=== PATIENT | male | born 1960 | race African-American/Black ===

== ENCOUNTER 2018-09-07 16:49 | Inpatient (IN) | payer OTHER ==
[2018-09-07 17:54] VITALS: BMI 23.2
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
[2018-09-08] MEDS ORDERED: MAGNESIUM CITRATE 300 ML BOTTLE PO PRN (00:25)
[2018-09-08] MEDS ORDERED: LOPERAMIDE HCL 2 MG CAPSULE PO PRN (00:25)
[2018-09-08] MEDS ORDERED: hydrOXYzine PAMOATE 50 MG CAPSULE (FP) PO PRN (00:25)
[2018-09-08] MEDS ORDERED: MAGNESIUM HYDROX 2400MG/30ML ORAL SUSPENSION 30 ML CUP PO PRN (00:25)
[2018-09-08] MEDS ORDERED: MENTHOL/PHENOL 1 EACH UD MM PRN (00:25)
[2018-09-08] MEDS ORDERED: IBUPROFEN 400 MG TABLET (FP) PO PRN (00:25)
[2018-09-08] MEDS ORDERED: NICOTINE POLACRILEX 2 MG GUM BUC PRN (00:25)
[2018-09-08] MEDS ORDERED: guaiFENesin 200 MG/10 ML 10 ML UNIT-DOSE CUPS PO PRN (00:25)
[2018-09-08] MEDS ORDERED: P-EPHED 60MG/TRIPROLIDI 2.5MG TABLET PO PRN (00:25)
[2018-09-08 01:06] LABS: EPI CELLS 1.8 /HPF (0-5/HPF); HYALINE CASTS 0 /lpf (0-8); URINE APPEARANCE CLEAR; URINE BILIRUBIN NEGATIVE (NEGATIVE); URINE COLOR YELLOW; URINE GLUCOSE (UA) NEGATIVE (NEGATIVE); URINE KETONE NEGATIVE (NEGATIVE); URINE LEUK ESTERASE TRACE (NEGATIVE); URINE NITRITE NEGATIVE (NEGATIVE); URINE PROTEIN NEGATIVE (NEGATIVE); URINE RBC 1 /hpf (0-4); URINE WBC 5 /hpf (0-5)
[2018-09-08] MEDS: MAG HYDROX/AL HYDROX/SIMETH 30 ML UNIT-DOSE CUP PO PRN (05:59)
[2018-09-08 10:03] LABS: HEMATOCRIT 42.1 % (35.4-49); MCH 30.5 pg (25.7-33.7); MCHC 33.2 g/dl (32.0-35.9); MEAN PLT VOLUME 9.7 fl (7.5-11.1); PLATELET COUNT 291 K/MM3 (134-434); RBC 4.58 M/mm3 (4.00-5.60); RDW 12.7 % (11.9-15.9); WHITE BLOOD COUNT 6.4 K/mm3 (4.0-10.0)
[2018-09-08 10:22] LABS: BILIRUBIN,TOTAL 0.4 mg/dL (0.2-1); CALCIUM 9.2 mg/dL (8.5-10.1); CREATININE 1.2 mg/dL (0.55-1.3); TOT PROT 6.5 g/dl (6.4-8.2)
[2018-09-08] MEDS: PRENATAL VITAMINS W/ FOLIC ACID TABLET (FP) PO SCH (10:30)
[2018-09-08] MEDS: PANTOPRAZOLE 20 MG TABLET (FP) PO SCH (10:30)
[2018-09-08] MEDS: THIAMINE HCL 100 MG TABLET (FP) PO SCH (22:06)
[2018-09-08] MEDS: ALBUTEROL SO4 2.5/IPRATROPIUM 0.5 INH SOL 3 ML VIAL.NEB. NEB PRN (22:22)
[2018-09-09] MEDS: MAG HYDROX/AL HYDROX/SIMETH 30 ML UNIT-DOSE CUP PO PRN ×3 (05:15→19:42)
--- NOTE | 2018-09-09 08:38 | EKG ---
Test Reason : Blood Pressure : / mmHG Vent. Rate : 063 BPM Atrial Rate : 065 BPM P-R Int : 134 ms QRS Dur : 084 ms QT Int : 424 ms P-R-T Axes : 063 078 066 degrees QTc Int : 433 ms NORMAL SINUS RHYTHM WITH SINUS ARRHYTHMIA NORMAL ECG NO PREVIOUS ECGS AVAILABLE Confirmed by TANK IRBY, MELIA ([id number]) on 09/09/2018 8:38:13 AM Referred By: Dayanna Freitas Confirmed By:MELIA FU MD
[2018-09-09] MEDS: PANTOPRAZOLE 20 MG TABLET (FP) PO SCH (10:34)
[2018-09-09] MEDS: PRENATAL VITAMINS W/ FOLIC ACID TABLET (FP) PO SCH (10:34)
[2018-09-09] MEDS: THIAMINE HCL 100 MG TABLET (FP) PO SCH (21:17)
[2018-09-10] MEDS: MAG HYDROX/AL HYDROX/SIMETH 30 ML UNIT-DOSE CUP PO PRN ×3 (01:30→21:51)
[2018-09-10] MEDS: PRENATAL VITAMINS W/ FOLIC ACID TABLET (FP) PO SCH (09:59)
[2018-09-10] MEDS: PANTOPRAZOLE 20 MG TABLET (FP) PO SCH (09:59)
[2018-09-10 11:01] LABS: EPI CELLS 1.7 /HPF (0-5/HPF); HYALINE CASTS 46 /lpf (0-8); PH,URINE 7.5 (5.0-8.0); URINE APPEARANCE CLEAR; URINE BACTERIA 18.6 /hpf (NEGATIVE); URINE BILIRUBIN NEGATIVE (NEGATIVE); URINE COLOR YELLOW; URINE GLUCOSE (UA) NEGATIVE (NEGATIVE); URINE KETONE NEGATIVE (NEGATIVE); URINE LEUK ESTERASE 3+ (NEGATIVE); URINE NITRITE NEGATIVE (NEGATIVE); URINE PROTEIN NEGATIVE (NEGATIVE); URINE RBC 1 /hpf (0-4); URINE UROBILINOGEN 0.2 mg/dL (0.2-1.0); URINE WBC 75 /hpf (0-5)
[2018-09-10] MEDS: THIAMINE HCL 100 MG TABLET (FP) PO SCH (21:50)
[2018-09-11] MEDS: PRENATAL VITAMINS W/ FOLIC ACID TABLET (FP) PO SCH (10:22)
[2018-09-11] MEDS: PANTOPRAZOLE 20 MG TABLET (FP) PO SCH (10:22)
--- NOTE | 2018-09-11 15:03 | PN ---
[facility] Progress Note Note: Patient with GERD. Protonix increased to 40mg BID. Will continue to monitor.
[2018-09-11] MEDS: MAG HYDROX/AL HYDROX/SIMETH 30 ML UNIT-DOSE CUP PO PRN (21:57)
[2018-09-11] MEDS: THIAMINE HCL 100 MG TABLET (FP) PO SCH (21:57)
[2018-09-11] MEDS: PANTOPRAZOLE 40 MG TABLET (FP) PO SCH (21:59)
[2018-09-12] MEDS: PRENATAL VITAMINS W/ FOLIC ACID TABLET (FP) PO SCH (10:22)
[2018-09-12] MEDS: PANTOPRAZOLE 40 MG TABLET (FP) PO SCH ×2 (10:22→21:02)
[2018-09-12] MEDS: THIAMINE HCL 100 MG TABLET (FP) PO SCH (21:02)
[2018-09-12] MEDS: MAG HYDROX/AL HYDROX/SIMETH 30 ML UNIT-DOSE CUP PO PRN (21:03)
[2018-09-12] MEDS: MELATONIN 5 MG TABLETS PO PRN (21:03)
[2018-09-13] MEDS: PRENATAL VITAMINS W/ FOLIC ACID TABLET (FP) PO SCH (10:21)
[2018-09-13] MEDS: PANTOPRAZOLE 40 MG TABLET (FP) PO SCH ×2 (10:21→22:01)
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
[2018-09-13] MEDS: BACITRACIN 15 GM TUBE TOPICAL OINTMENT TP SCH (16:10)
[2018-09-13] MEDS: IBUPROFEN 600 MG TABLET (FP) PO PRN (17:00)
[2018-09-13] MEDS: THIAMINE HCL 100 MG TABLET (FP) PO SCH (22:01)
[2018-09-13] MEDS: MELATONIN 5 MG TABLETS PO PRN (22:01)
[2018-09-13] MEDS: LIDOCAINE PATCH REMOVAL MC SCH (22:02)
[2018-09-13] MEDS: METHYL SALICYLATE/MENTHOL OINT 30 GM TUBE TP SCH (22:27)
[2018-09-14] MEDS: MAG HYDROX/AL HYDROX/SIMETH 30 ML UNIT-DOSE CUP PO PRN (02:52)
[2018-09-14] MEDS: PRENATAL VITAMINS W/ FOLIC ACID TABLET (FP) PO SCH (09:31)
[2018-09-14] MEDS: LIDOCAINE 5% TOPICAL PATCH TP SCH (09:31)
[2018-09-14] MEDS: PANTOPRAZOLE 40 MG TABLET (FP) PO SCH ×2 (09:31→21:30)
[2018-09-14] MEDS: IBUPROFEN 600 MG TABLET (FP) PO PRN ×2 (09:33→21:31)
[2018-09-14] MEDS: BACITRACIN 15 GM TUBE TOPICAL OINTMENT TP SCH (10:24)
[2018-09-14] MEDS: METHYL SALICYLATE/MENTHOL OINT 30 GM TUBE TP SCH (10:24)
[2018-09-14] MEDS: ALBUTEROL SO4 2.5/IPRATROPIUM 0.5 INH SOL 3 ML VIAL.NEB. NEB PRN (11:23)
[2018-09-14] MEDS: LIDOCAINE PATCH REMOVAL MC SCH (21:30)
[2018-09-14] MEDS: THIAMINE HCL 100 MG TABLET (FP) PO SCH (21:30)
[2018-09-15] MEDS: ALBUTEROL SO4 2.5/IPRATROPIUM 0.5 INH SOL 3 ML VIAL.NEB. NEB PRN ×2 (06:36→23:22)
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
[2018-09-15] MEDS: BACITRACIN 15 GM TUBE TOPICAL OINTMENT TP SCH (09:53)
[2018-09-15] MEDS: PRENATAL VITAMINS W/ FOLIC ACID TABLET (FP) PO SCH (09:53)
[2018-09-15] MEDS: PANTOPRAZOLE 40 MG TABLET (FP) PO SCH ×2 (09:53→21:08)
[2018-09-15] MEDS: LIDOCAINE 5% TOPICAL PATCH TP SCH (09:53)
[2018-09-15] MEDS: METHYL SALICYLATE/MENTHOL OINT 30 GM TUBE TP SCH (09:54)
[2018-09-15] MEDS: THIAMINE HCL 100 MG TABLET (FP) PO SCH (21:08)
[2018-09-15] MEDS: SUVOREXANT 10 MG TABLET PO PRN (21:08)
[2018-09-15] MEDS: IBUPROFEN 600 MG TABLET (FP) PO PRN (21:08)
[2018-09-15] MEDS: LIDOCAINE PATCH REMOVAL MC SCH (21:09)
[2018-09-16] MEDS ORDERED: PT OWN MED DRAWER 7, Y5N ONE ×2 (08:46→10:13)
[2018-09-16] MEDS: LIDOCAINE 5% TOPICAL PATCH TP SCH (09:44)
[2018-09-16] MEDS: METHYL SALICYLATE/MENTHOL OINT 30 GM TUBE TP SCH (09:45)
[2018-09-16] MEDS: BACITRACIN 15 GM TUBE TOPICAL OINTMENT TP SCH (09:45)
[2018-09-16] MEDS: PRENATAL VITAMINS W/ FOLIC ACID TABLET (FP) PO SCH (09:45)
[2018-09-16] MEDS: PANTOPRAZOLE 40 MG TABLET (FP) PO SCH ×2 (09:45→21:04)
[2018-09-16] MEDS: ALBUTEROL SO4 2.5/IPRATROPIUM 0.5 INH SOL 3 ML VIAL.NEB. NEB PRN (14:44)
[2018-09-16] MEDS: SUVOREXANT 10 MG TABLET PO PRN (21:04)
[2018-09-16] MEDS: IBUPROFEN 600 MG TABLET (FP) PO PRN (21:04)
[2018-09-16] MEDS: LIDOCAINE PATCH REMOVAL MC SCH (21:05)
[2018-09-16] MEDS: BUDESONIDE/FORMETEROL FUMARATE 160/4.5 mcg INHALER IH SCH (21:05)
[2018-09-16] MEDS: MELATONIN 5 MG TABLETS PO PRN (21:05)
[2018-09-16] MEDS: THIAMINE HCL 100 MG TABLET (FP) PO SCH (21:49)
[2018-09-17] MEDS ORDERED: PT OWN MED DRAWER 7, Y5N ONE (08:43)
[2018-09-17] MEDS: LIDOCAINE 5% TOPICAL PATCH TP SCH (09:31)
[2018-09-17] MEDS: BUDESONIDE/FORMETEROL FUMARATE 160/4.5 mcg INHALER IH SCH ×2 (09:32→21:47)
[2018-09-17] MEDS: PRENATAL VITAMINS W/ FOLIC ACID TABLET (FP) PO SCH (09:32)
[2018-09-17] MEDS: METHYL SALICYLATE/MENTHOL OINT 30 GM TUBE TP SCH (09:32)
[2018-09-17] MEDS: PANTOPRAZOLE 40 MG TABLET (FP) PO SCH ×2 (09:32→21:47)
[2018-09-17] MEDS: BACITRACIN 15 GM TUBE TOPICAL OINTMENT TP SCH (09:48)
[2018-09-17] MEDS: ACETAMINOPHEN 325 MG TABLET (FP) PO PRN (20:09)
[2018-09-17] MEDS: THIAMINE HCL 100 MG TABLET (FP) PO SCH (21:47)
[2018-09-17] MEDS: LIDOCAINE PATCH REMOVAL MC SCH (21:48)
[2018-09-17] MEDS: IBUPROFEN 600 MG TABLET (FP) PO PRN (21:49)
[2018-09-17] MEDS: SUVOREXANT 10 MG TABLET PO PRN (21:49)
[2018-09-18] MEDS: METHYL SALICYLATE/MENTHOL OINT 30 GM TUBE TP SCH (09:42)
[2018-09-18] MEDS: PRENATAL VITAMINS W/ FOLIC ACID TABLET (FP) PO SCH (09:42)
[2018-09-18] MEDS: LIDOCAINE 5% TOPICAL PATCH TP SCH (09:42)
[2018-09-18] MEDS: PANTOPRAZOLE 40 MG TABLET (FP) PO SCH ×2 (09:42→21:52)
[2018-09-18] MEDS: BUDESONIDE/FORMETEROL FUMARATE 160/4.5 mcg INHALER IH SCH ×2 (09:42→21:53)
[2018-09-18] MEDS: BACITRACIN 15 GM TUBE TOPICAL OINTMENT TP SCH (09:42)
[2018-09-18] MEDS: ACETAMINOPHEN 325 MG TABLET (FP) PO PRN (09:43)
[2018-09-18] MEDS: THIAMINE HCL 100 MG TABLET (FP) PO SCH (21:52)
[2018-09-18] MEDS: MELATONIN 5 MG TABLETS PO PRN (21:52)
[2018-09-18] MEDS: LIDOCAINE PATCH REMOVAL MC SCH (21:52)
[2018-09-18] MEDS: IBUPROFEN 600 MG TABLET (FP) PO PRN (21:54)
[2018-09-18] MEDS: SUVOREXANT 10 MG TABLET PO PRN (21:56)
[2018-09-18] MEDS ORDERED: PT OWN MED DRAWER 7, Y5N ONE (21:57)
[2018-09-19] MEDS: PRENATAL VITAMINS W/ FOLIC ACID TABLET (FP) PO SCH (10:16)
[2018-09-19] MEDS: LIDOCAINE 5% TOPICAL PATCH TP SCH (10:16)
[2018-09-19] MEDS: PANTOPRAZOLE 40 MG TABLET (FP) PO SCH ×2 (10:16→21:06)
[2018-09-19] MEDS: BUDESONIDE/FORMETEROL FUMARATE 160/4.5 mcg INHALER IH SCH ×2 (10:16→21:05)
[2018-09-19] MEDS: ACETAMINOPHEN 325 MG TABLET (FP) PO PRN (10:17)
[2018-09-19] MEDS: METHYL SALICYLATE/MENTHOL OINT 30 GM TUBE TP SCH (10:19)
[2018-09-19] MEDS: BACITRACIN 15 GM TUBE TOPICAL OINTMENT TP SCH (10:19)
[2018-09-19] MEDS: MELATONIN 5 MG TABLETS PO PRN (21:06)
[2018-09-19] MEDS: SUVOREXANT 10 MG TABLET PO PRN (21:06)
[2018-09-19] MEDS: THIAMINE HCL 100 MG TABLET (FP) PO SCH (21:06)
[2018-09-19] MEDS: IBUPROFEN 600 MG TABLET (FP) PO PRN (21:07)
[2018-09-19] MEDS: LIDOCAINE PATCH REMOVAL MC SCH (21:09)
[2018-09-20] MEDS: PRENATAL VITAMINS W/ FOLIC ACID TABLET (FP) PO SCH (09:47)
[2018-09-20] MEDS: PANTOPRAZOLE 40 MG TABLET (FP) PO SCH ×2 (09:47→21:46)
[2018-09-20] MEDS: BUDESONIDE/FORMETEROL FUMARATE 160/4.5 mcg INHALER IH SCH ×2 (09:47→21:45)
[2018-09-20] MEDS: IBUPROFEN 600 MG TABLET (FP) PO PRN (09:48)
[2018-09-20] MEDS: METHYL SALICYLATE/MENTHOL OINT 30 GM TUBE TP SCH (09:48)
[2018-09-20] MEDS: BACITRACIN 15 GM TUBE TOPICAL OINTMENT TP SCH (09:48)
[2018-09-20] MEDS: LIDOCAINE 5% TOPICAL PATCH TP SCH (09:48)
--- NOTE | 2018-09-20 10:15 | PN ---
[facility] Progress Note Note: Patient requesting urine toxicology for admission to a [facility]. Ordered.
[2018-09-20] MEDS: MELATONIN 5 MG TABLETS PO PRN (21:46)
[2018-09-20] MEDS: ACETAMINOPHEN 325 MG TABLET (FP) PO PRN (21:46)
[2018-09-20] MEDS: THIAMINE HCL 100 MG TABLET (FP) PO SCH (21:46)
[2018-09-20] MEDS: SUVOREXANT 10 MG TABLET PO PRN (21:46)
[2018-09-20] MEDS: LIDOCAINE PATCH REMOVAL MC SCH (21:48)
[2018-09-21] MEDS: BUDESONIDE/FORMETEROL FUMARATE 160/4.5 mcg INHALER IH SCH ×2 (09:36→21:13)
[2018-09-21] MEDS: PRENATAL VITAMINS W/ FOLIC ACID TABLET (FP) PO SCH (09:37)
[2018-09-21] MEDS: ACETAMINOPHEN 325 MG TABLET (FP) PO PRN (09:37)
[2018-09-21] MEDS: LIDOCAINE 5% TOPICAL PATCH TP SCH (09:37)
[2018-09-21] MEDS: PANTOPRAZOLE 40 MG TABLET (FP) PO SCH ×2 (09:37→21:14)
[2018-09-21] MEDS: BACITRACIN 15 GM TUBE TOPICAL OINTMENT TP SCH (09:39)
[2018-09-21] MEDS: METHYL SALICYLATE/MENTHOL OINT 30 GM TUBE TP SCH (09:39)
[2018-09-21] MEDS: IBUPROFEN 600 MG TABLET (FP) PO PRN ×2 (13:45→21:17)
[2018-09-21] MEDS: THIAMINE HCL 100 MG TABLET (FP) PO SCH (21:14)
[2018-09-21] MEDS: LIDOCAINE PATCH REMOVAL MC SCH (21:14)
[2018-09-21] MEDS: MELATONIN 5 MG TABLETS PO PRN (21:17)
[2018-09-21] MEDS: SUVOREXANT 10 MG TABLET PO PRN (21:19)
[2018-09-22] MEDS: LIDOCAINE 5% TOPICAL PATCH TP SCH (09:36)
[2018-09-22] MEDS: PANTOPRAZOLE 40 MG TABLET (FP) PO SCH ×2 (09:36→22:02)
[2018-09-22] MEDS: PRENATAL VITAMINS W/ FOLIC ACID TABLET (FP) PO SCH (09:36)
[2018-09-22] MEDS: BUDESONIDE/FORMETEROL FUMARATE 160/4.5 mcg INHALER IH SCH ×2 (09:37→22:02)
[2018-09-22] MEDS: IBUPROFEN 600 MG TABLET (FP) PO PRN ×2 (09:37→22:04)
[2018-09-22] MEDS: BACITRACIN 15 GM TUBE TOPICAL OINTMENT TP SCH (09:38)
[2018-09-22] MEDS: METHYL SALICYLATE/MENTHOL OINT 30 GM TUBE TP SCH (09:38)
[2018-09-22] MEDS: THIAMINE HCL 100 MG TABLET (FP) PO SCH (22:02)
[2018-09-22] MEDS: SUVOREXANT 10 MG TABLET PO PRN (22:04)
[2018-09-22] MEDS: MELATONIN 5 MG TABLETS PO PRN (22:04)
[2018-09-22] MEDS: LIDOCAINE PATCH REMOVAL MC SCH (22:04)
[2018-09-23] MEDS: PANTOPRAZOLE 40 MG TABLET (FP) PO SCH ×2 (10:25→21:53)
[2018-09-23] MEDS: BACITRACIN 15 GM TUBE TOPICAL OINTMENT TP SCH (10:25)
[2018-09-23] MEDS: IBUPROFEN 600 MG TABLET (FP) PO PRN (10:25)
[2018-09-23] MEDS: PRENATAL VITAMINS W/ FOLIC ACID TABLET (FP) PO SCH (10:25)
[2018-09-23] MEDS: METHYL SALICYLATE/MENTHOL OINT 30 GM TUBE TP SCH (10:25)
[2018-09-23] MEDS: LIDOCAINE 5% TOPICAL PATCH TP SCH (10:25)
[2018-09-23] MEDS: BUDESONIDE/FORMETEROL FUMARATE 160/4.5 mcg INHALER IH SCH ×2 (10:25→21:52)
[2018-09-23] MEDS: MELATONIN 5 MG TABLETS PO PRN (21:53)
[2018-09-23] MEDS: SUVOREXANT 10 MG TABLET PO PRN (21:53)
[2018-09-23] MEDS: THIAMINE HCL 100 MG TABLET (FP) PO SCH (21:53)
[2018-09-23] MEDS: ACETAMINOPHEN 325 MG TABLET (FP) PO PRN (21:55)
[2018-09-23] MEDS: LIDOCAINE PATCH REMOVAL MC SCH (21:57)
[2018-09-24] MEDS: IBUPROFEN 600 MG TABLET (FP) PO PRN ×2 (01:52→21:17)
[2018-09-24] MEDS: PRENATAL VITAMINS W/ FOLIC ACID TABLET (FP) PO SCH (10:11)
[2018-09-24] MEDS: LIDOCAINE 5% TOPICAL PATCH TP SCH (10:11)
[2018-09-24] MEDS: METHYL SALICYLATE/MENTHOL OINT 30 GM TUBE TP SCH (10:11)
[2018-09-24] MEDS: PANTOPRAZOLE 40 MG TABLET (FP) PO SCH ×2 (10:11→21:16)
[2018-09-24] MEDS: BACITRACIN 15 GM TUBE TOPICAL OINTMENT TP SCH (10:11)
[2018-09-24] MEDS: ACETAMINOPHEN 325 MG TABLET (FP) PO PRN (10:12)
[2018-09-24] MEDS: BUDESONIDE/FORMETEROL FUMARATE 160/4.5 mcg INHALER IH SCH ×2 (10:14→21:16)
[2018-09-24] MEDS: SUVOREXANT 10 MG TABLET PO PRN (21:16)
[2018-09-24] MEDS: MELATONIN 5 MG TABLETS PO PRN (21:16)
[2018-09-24] MEDS: THIAMINE HCL 100 MG TABLET (FP) PO SCH (21:16)
[2018-09-24] MEDS: LIDOCAINE PATCH REMOVAL MC SCH (21:18)
[2018-09-25] MEDS: PRENATAL VITAMINS W/ FOLIC ACID TABLET (FP) PO SCH (09:38)
[2018-09-25] MEDS: BUDESONIDE/FORMETEROL FUMARATE 160/4.5 mcg INHALER IH SCH ×2 (09:38→21:50)
[2018-09-25] MEDS: BACITRACIN 15 GM TUBE TOPICAL OINTMENT TP SCH (09:39)
[2018-09-25] MEDS: LIDOCAINE 5% TOPICAL PATCH TP SCH (09:39)
[2018-09-25] MEDS: METHYL SALICYLATE/MENTHOL OINT 30 GM TUBE TP SCH (09:39)
[2018-09-25] MEDS: PANTOPRAZOLE 40 MG TABLET (FP) PO SCH ×2 (09:39→21:51)
[2018-09-25] MEDS: ACETAMINOPHEN 325 MG TABLET (FP) PO PRN (09:40)
[2018-09-25] MEDS ORDERED: COLLOIDAL OATMEAL 1 BAR EACH TP PRN (09:52)
[2018-09-25] MEDS: LORATADINE 10 MG TABLET PO SCH (14:27)
[2018-09-25] MEDS: MELATONIN 5 MG TABLETS PO PRN (21:51)
[2018-09-25] MEDS: IBUPROFEN 600 MG TABLET (FP) PO PRN (21:51)
[2018-09-25] MEDS: THIAMINE HCL 100 MG TABLET (FP) PO SCH (21:51)
[2018-09-25] MEDS: SUVOREXANT 10 MG TABLET PO PRN (21:51)
[2018-09-25] MEDS: LIDOCAINE PATCH REMOVAL MC SCH (22:00)
[2018-09-26] MEDS: PRENATAL VITAMINS W/ FOLIC ACID TABLET (FP) PO SCH (09:43)
[2018-09-26] MEDS: PANTOPRAZOLE 40 MG TABLET (FP) PO SCH ×2 (09:43→21:01)
[2018-09-26] MEDS: LORATADINE 10 MG TABLET PO SCH (09:43)
[2018-09-26] MEDS: BUDESONIDE/FORMETEROL FUMARATE 160/4.5 mcg INHALER IH SCH ×2 (09:43→21:01)
[2018-09-26] MEDS: LIDOCAINE 5% TOPICAL PATCH TP SCH (09:43)
[2018-09-26] MEDS: ACETAMINOPHEN 325 MG TABLET (FP) PO PRN (09:44)
[2018-09-26] MEDS: METHYL SALICYLATE/MENTHOL OINT 30 GM TUBE TP SCH (10:52)
[2018-09-26] MEDS: BACITRACIN 15 GM TUBE TOPICAL OINTMENT TP SCH (10:52)
[2018-09-26] MEDS: LIDOCAINE PATCH REMOVAL MC SCH (21:01)
[2018-09-26] MEDS: THIAMINE HCL 100 MG TABLET (FP) PO SCH (21:01)
[2018-09-26] MEDS: MELATONIN 5 MG TABLETS PO PRN (21:01)
[2018-09-26] MEDS: IBUPROFEN 600 MG TABLET (FP) PO PRN (21:02)
[2018-09-26] MEDS: SUVOREXANT 10 MG TABLET PO PRN (21:04)
[2018-09-27] MEDS: PANTOPRAZOLE 40 MG TABLET (FP) PO SCH ×2 (09:33→21:56)
[2018-09-27] MEDS: PRENATAL VITAMINS W/ FOLIC ACID TABLET (FP) PO SCH (09:33)
[2018-09-27] MEDS: LIDOCAINE 5% TOPICAL PATCH TP SCH (09:33)
[2018-09-27] MEDS: LORATADINE 10 MG TABLET PO SCH (09:33)
[2018-09-27] MEDS: IBUPROFEN 600 MG TABLET (FP) PO PRN ×2 (09:34→21:58)
[2018-09-27] MEDS: BACITRACIN 15 GM TUBE TOPICAL OINTMENT TP SCH (09:36)
[2018-09-27] MEDS: BUDESONIDE/FORMETEROL FUMARATE 160/4.5 mcg INHALER IH SCH ×2 (09:36→21:56)
[2018-09-27] MEDS: METHYL SALICYLATE/MENTHOL OINT 30 GM TUBE TP SCH (09:36)
[2018-09-27] MEDS: THIAMINE HCL 100 MG TABLET (FP) PO SCH (21:56)
[2018-09-27] MEDS: SUVOREXANT 10 MG TABLET PO PRN (21:57)
[2018-09-27] MEDS: MELATONIN 5 MG TABLETS PO PRN (21:58)
[2018-09-27] MEDS: LIDOCAINE PATCH REMOVAL MC SCH (21:59)
[2018-09-27] MEDS ORDERED: SUVOREXANT 10 MG TABLET PO PRN (22:00)
[2018-09-28] MEDS: LORATADINE 10 MG TABLET PO SCH (09:38)
[2018-09-28] MEDS: PRENATAL VITAMINS W/ FOLIC ACID TABLET (FP) PO SCH (09:38)
[2018-09-28] MEDS: ACETAMINOPHEN 325 MG TABLET (FP) PO PRN ×2 (09:38→21:45)
[2018-09-28] MEDS: PANTOPRAZOLE 40 MG TABLET (FP) PO SCH ×2 (09:38→21:44)
[2018-09-28] MEDS: BUDESONIDE/FORMETEROL FUMARATE 160/4.5 mcg INHALER IH SCH ×2 (09:38→21:44)
[2018-09-28] MEDS: LIDOCAINE 5% TOPICAL PATCH TP SCH (09:39)
[2018-09-28] MEDS: METHYL SALICYLATE/MENTHOL OINT 30 GM TUBE TP SCH (09:40)
[2018-09-28] MEDS: BACITRACIN 15 GM TUBE TOPICAL OINTMENT TP SCH (09:40)
[2018-09-28] MEDS: MELATONIN 5 MG TABLETS PO PRN (21:44)
[2018-09-28] MEDS: SUVOREXANT 10 MG TABLET PO PRN (21:44)
[2018-09-28] MEDS: THIAMINE HCL 100 MG TABLET (FP) PO SCH (21:46)
[2018-09-28] MEDS: LIDOCAINE PATCH REMOVAL MC SCH (21:47)
[2018-09-29] MEDS: PANTOPRAZOLE 40 MG TABLET (FP) PO SCH ×2 (09:29→21:05)
[2018-09-29] MEDS: LORATADINE 10 MG TABLET PO SCH (09:29)
[2018-09-29] MEDS: IBUPROFEN 600 MG TABLET (FP) PO PRN ×3 (09:29→21:04)
[2018-09-29] MEDS: PRENATAL VITAMINS W/ FOLIC ACID TABLET (FP) PO SCH (09:29)
[2018-09-29] MEDS: LIDOCAINE 5% TOPICAL PATCH TP SCH (09:30)
[2018-09-29] MEDS: BUDESONIDE/FORMETEROL FUMARATE 160/4.5 mcg INHALER IH SCH ×2 (09:30→21:04)
[2018-09-29] MEDS: METHYL SALICYLATE/MENTHOL OINT 30 GM TUBE TP SCH (09:31)
[2018-09-29] MEDS: BACITRACIN 15 GM TUBE TOPICAL OINTMENT TP SCH (09:31)
[2018-09-29] MEDS: MELATONIN 5 MG TABLETS PO PRN (21:04)
[2018-09-29] MEDS: SUVOREXANT 10 MG TABLET PO PRN (21:04)
[2018-09-29] MEDS: THIAMINE HCL 100 MG TABLET (FP) PO SCH (21:05)
[2018-09-29] MEDS: LIDOCAINE PATCH REMOVAL MC SCH (21:06)
[2018-09-30] MEDS: PANTOPRAZOLE 40 MG TABLET (FP) PO SCH ×2 (09:12→22:09)
[2018-09-30] MEDS: BUDESONIDE/FORMETEROL FUMARATE 160/4.5 mcg INHALER IH SCH ×2 (09:12→22:09)
[2018-09-30] MEDS: PRENATAL VITAMINS W/ FOLIC ACID TABLET (FP) PO SCH (09:12)
[2018-09-30] MEDS: LORATADINE 10 MG TABLET PO SCH (09:12)
[2018-09-30] MEDS: IBUPROFEN 600 MG TABLET (FP) PO PRN ×2 (09:14→20:08)
[2018-09-30] MEDS: METHYL SALICYLATE/MENTHOL OINT 30 GM TUBE TP SCH (09:15)
[2018-09-30] MEDS: LIDOCAINE 5% TOPICAL PATCH TP SCH (09:15)
[2018-09-30] MEDS: BACITRACIN 15 GM TUBE TOPICAL OINTMENT TP SCH (09:15)
--- NOTE | 2018-09-30 12:57 | PN ---
[facility] Progress Note Note: Psychiatry Attending's note : Called to renew suvorexant. Chart reviewed. Medication is confirmed. No report of adverse effects. Improved sleep. Belsomra 10 mg po hs prn. Ordered. Patient agrees.
[2018-09-30] MEDS ORDERED: PT OWN MED DRAWER 7, Y5N ONE (19:50)
[2018-09-30] MEDS ORDERED: SUVOREXANT 10 MG TABLET PO PRN (22:00)
[2018-09-30] MEDS: THIAMINE HCL 100 MG TABLET (FP) PO SCH (22:09)
[2018-09-30] MEDS: MELATONIN 5 MG TABLETS PO PRN (22:09)
[2018-09-30] MEDS: LIDOCAINE PATCH REMOVAL MC SCH (22:34)
[2018-09-30] MEDS: ACETAMINOPHEN 325 MG TABLET (FP) PO PRN (23:39)
[2018-10-01] MEDS ORDERED: PT OWN MED DRAWER 7, Y5N ONE (09:52)
[2018-10-01] MEDS: BUDESONIDE/FORMETEROL FUMARATE 160/4.5 mcg INHALER IH SCH ×2 (10:48→21:08)
[2018-10-01] MEDS: LORATADINE 10 MG TABLET PO SCH (10:49)
[2018-10-01] MEDS: BACITRACIN 15 GM TUBE TOPICAL OINTMENT TP SCH (10:49)
[2018-10-01] MEDS: METHYL SALICYLATE/MENTHOL OINT 30 GM TUBE TP SCH (10:49)
[2018-10-01] MEDS: PANTOPRAZOLE 40 MG TABLET (FP) PO SCH ×2 (10:49→21:08)
[2018-10-01] MEDS: LIDOCAINE 5% TOPICAL PATCH TP SCH (10:49)
[2018-10-01] MEDS: PRENATAL VITAMINS W/ FOLIC ACID TABLET (FP) PO SCH (10:49)
[2018-10-01] MEDS: IBUPROFEN 600 MG TABLET (FP) PO PRN ×2 (10:50→17:26)
[2018-10-01] MEDS: LIDOCAINE PATCH REMOVAL MC SCH (21:08)
[2018-10-01] MEDS: THIAMINE HCL 100 MG TABLET (FP) PO SCH (21:09)
[2018-10-01] MEDS: SUVOREXANT 10 MG TABLET PO PRN (21:10)
[2018-10-01] MEDS: ACETAMINOPHEN 325 MG TABLET (FP) PO PRN (21:11)
[2018-10-01] MEDS: MELATONIN 5 MG TABLETS PO PRN (21:11)
[2018-10-02] MEDS: LORATADINE 10 MG TABLET PO SCH (09:34)
[2018-10-02] MEDS ORDERED: PT OWN MED DRAWER 7, Y5N ONE (09:34)
[2018-10-02] MEDS: LIDOCAINE 5% TOPICAL PATCH TP SCH (09:34)
[2018-10-02] MEDS: PRENATAL VITAMINS W/ FOLIC ACID TABLET (FP) PO SCH (09:34)
[2018-10-02] MEDS: IBUPROFEN 600 MG TABLET (FP) PO PRN ×2 (09:34→21:59)
[2018-10-02] MEDS: PANTOPRAZOLE 40 MG TABLET (FP) PO SCH ×2 (09:34→21:58)
[2018-10-02] MEDS: BACITRACIN 15 GM TUBE TOPICAL OINTMENT TP SCH (09:36)
[2018-10-02] MEDS: BUDESONIDE/FORMETEROL FUMARATE 160/4.5 mcg INHALER IH SCH ×2 (09:36→21:58)
[2018-10-02] MEDS: METHYL SALICYLATE/MENTHOL OINT 30 GM TUBE TP SCH (09:36)
[2018-10-02] MEDS: THIAMINE HCL 100 MG TABLET (FP) PO SCH (21:58)
[2018-10-02] MEDS: MELATONIN 5 MG TABLETS PO PRN (21:58)
[2018-10-02] MEDS: SUVOREXANT 10 MG TABLET PO PRN (21:59)
[2018-10-02] MEDS: LIDOCAINE PATCH REMOVAL MC SCH (22:01)
--- NOTE | 2018-10-03 06:01 | PN ---
[facility] Progress Note Note: Patient is scheduled for discharge today. Script for 30 days supply of medications(Prozac 20 mg/day, Remeron 15 mg/hs) are electronically transmitted to [facility] at [address] [place] [address]
[2018-10-03 06:50] VITALS: BP 112/71; PULSE 80; TEMP 97.6
--- NOTE | 2018-10-03 08:26 | PN ---
[facility] Progress Note (SOAP) Subjective: Patient to be discharged today Objective: A+O x3, no neurological deficits noted, lungs clear, heart sounds regular, abd soft, non-tender, +BS 10/03/18 08:24 CBC, BMP 09/08/18 07:25 09/08/18 07:25 Vital Signs (72 hours) 10/01/18 10/01/18 10/01/18 00:30 03:30 07:01 Temperature 97.7 F Pulse Rate 75 Respiratory 18 18 18 Rate Blood Pressure 103/78 10/02/18 10/02/18 10/02/18 00:30 03:30 07:02 Temperature 97.5 F L Pulse Rate 78 Respiratory 18 18 18 Rate Blood Pressure 119/75 10/03/18 10/03/18 03:30 06:48 Temperature 97.6 F Pulse Rate 80 Respiratory 18 18 Rate Blood Pressure 112/71 10/03/18 08:29 Assessment: Medically stable for discharge Discharge Dx ETOH dependence Cocaine Dependence Chronic pain Asthma GERD 10/03/18 08:25 Plan: Discharge Plan: Patient will go to the [facility] in [place] for aftercare and for primary care. Prescriptions transmitted to pharmacy.
[2018-10-03] MEDS: IBUPROFEN 600 MG TABLET (FP) PO PRN (08:40)
== END 2018-10-03 09:04 | disposition home or self-care (01) | DRG 772 ==
LOC: YASAS 16:49 → Y3W 23:15
PROVIDERS: ADMIT Neuromusculoskeletal Medicine & OMM; ATTEND Neuromusculoskeletal Medicine & OMM
PROC: HZ42ZZZ Group Counseling for Substance Abuse Treatment, Cognitive-Behavioral (ICD-10-PCS; principal; 2018-09-07)
DX: F10.20 Alcohol dependence, uncomplicated (principal); F14.20 Cocaine dependence, uncomplicated; F17.210 Nicotine dependence, cigarettes, uncomplicated; F31.9 Bipolar disorder, unspecified; F43.10 Post-traumatic stress disorder, unspecified; F19.280 Other psychoactive substance dependence with psychoactive substance-induced anxiety disorder; F19.282 Other psychoactive substance dependence with psychoactive substance-induced sleep disorder; J45.909 Unspecified asthma, uncomplicated; K21.9 Gastro-esophageal reflux disease without esophagitis; E78.5 Hyperlipidemia, unspecified; M19.90 Unspecified osteoarthritis, unspecified site; M54.5 Low back pain; G89.29 Other chronic pain; Z88.0 Allergy status to penicillin; Z86.69 Personal history of other diseases of the nervous system and sense organs
CPT/HCPCS: 36415; 80053; 81003; 85027; 86593; 93005; 93010; 94640

== ENCOUNTER 2019-03-21 08:30 | Inpatient (IN) | payer OTHER ==
[2019-03-21 09:24] VITALS: BMI 25.7
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
[2019-03-21] MEDS ORDERED: MAGNESIUM CITRATE 300 ML BOTTLE PO PRN (10:09)
[2019-03-21] MEDS ORDERED: ACETAMINOPHEN 325 MG TABLET (FP) PO PRN (10:09)
[2019-03-21] MEDS ORDERED: LOPERAMIDE HCL 2 MG CAPSULE PO PRN (10:09)
[2019-03-21] MEDS ORDERED: MAGNESIUM HYDROX 2400MG/30ML ORAL SUSPENSION 30 ML CUP PO PRN (10:09)
[2019-03-21] MEDS ORDERED: MENTHOL/PHENOL 1 EACH UD MM PRN (10:09)
[2019-03-21] MEDS ORDERED: guaiFENesin 200 MG/10 ML 10 ML UNIT-DOSE CUPS PO PRN (10:09)
[2019-03-21] MEDS ORDERED: P-EPHED 60MG/TRIPROLIDI 2.5MG TABLET PO PRN (10:09)
[2019-03-21] MEDS ORDERED: IBUPROFEN 400 MG TABLET (FP) PO PRN (10:09)
[2019-03-21] MEDS ORDERED: ALBUTEROL SO4 8 GM HFA INHALER IH PRN (10:10)
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
[2019-03-21 14:15] LABS: HEMOGLOBIN 13.6 GM/dL (11.7-16.9); MCH 30.5 pg (25.7-33.7); MCHC 33.2 g/dl (32.0-35.9); MEAN CELL VOLUME 92.1 fl (80-96); MEAN PLT VOLUME 9.3 fl (7.5-11.1); PLATELET COUNT 335 K/MM3 (134-434); RBC 4.45 M/mm3 (4.00-5.60); RDW 13.5 % (11.9-15.9); WHITE BLOOD COUNT 6.8 K/mm3 (4.0-10.0)
[2019-03-21 14:18] LABS: ALBUMIN 3.1 g/dl (3.4-5.0); BILIRUBIN,TOTAL 0.2 mg/dL (0.2-1); BLOOD UREA NITROGEN 11.3 mg/dL (7-18); CALCIUM 8.9 mg/dL (8.5-10.1); CREATININE 1.5 mg/dL (0.55-1.3); POTASSIUM 4.8 mmol/L (3.5-5.1); TOT PROT 7.4 g/dl (6.4-8.2)
[2019-03-21] MEDS ORDERED: COLLOIDAL OATMEAL 1 BAR EACH TP PRN (14:54)
[2019-03-21] MEDS: THIAMINE HCL 100 MG TABLET (FP) PO SCH (21:14)
[2019-03-21] MEDS: MELATONIN 5 MG TABLETS PO PRN (21:15)
[2019-03-21] MEDS: BUDESONIDE/FORMETEROL FUMARATE 160/4.5 mcg INHALER IH SCH (21:15)
[2019-03-22] MEDS: NICOTINE 7 MG/24 HOURS TOPICAL PATCH TD SCH (10:04)
[2019-03-22] MEDS: FAMOTIDINE 20 MG TABLET PO SCH (10:04)
[2019-03-22] MEDS: LORATADINE 10 MG TABLET PO SCH (10:04)
[2019-03-22] MEDS: PRENATAL VITAMINS W/ FOLIC ACID TABLET (FP) PO SCH (10:04)
[2019-03-22] MEDS: BUDESONIDE/FORMETEROL FUMARATE 160/4.5 mcg INHALER IH SCH ×2 (10:04→21:49)
[2019-03-22] MEDS: MINERAL OIL/PETROLAT/WATER TOPICAL CREAM 113 GM JAR TP PRN (10:05)
[2019-03-22 14:09] LABS: PH,URINE 6.5 (5.0-8.0); URINE APPEARANCE CLEAR; URINE BILIRUBIN NEGATIVE (NEGATIVE); URINE COLOR YELLOW; URINE GLUCOSE (UA) NEGATIVE (NEGATIVE); URINE KETONE NEGATIVE (NEGATIVE); URINE LEUK ESTERASE NEGATIVE (NEGATIVE); URINE NITRITE NEGATIVE (NEGATIVE); URINE PROTEIN NEGATIVE (NEGATIVE); URINE UROBILINOGEN 0.2 mg/dL (0.2-1.0)
[2019-03-22] MEDS: THIAMINE HCL 100 MG TABLET (FP) PO SCH (21:49)
[2019-03-23] MEDS: FAMOTIDINE 20 MG TABLET PO SCH (10:13)
[2019-03-23] MEDS: LORATADINE 10 MG TABLET PO SCH (10:13)
[2019-03-23] MEDS: PRENATAL VITAMINS W/ FOLIC ACID TABLET (FP) PO SCH (10:13)
[2019-03-23] MEDS: BUDESONIDE/FORMETEROL FUMARATE 160/4.5 mcg INHALER IH SCH ×2 (10:13→21:02)
[2019-03-23] MEDS: NICOTINE 7 MG/24 HOURS TOPICAL PATCH TD SCH (10:14)
[2019-03-23] MEDS: THIAMINE HCL 100 MG TABLET (FP) PO SCH (21:02)
[2019-03-23] MEDS: MELATONIN 5 MG TABLETS PO PRN (21:02)
[2019-03-24] MEDS: FAMOTIDINE 20 MG TABLET PO SCH (10:15)
[2019-03-24] MEDS: PRENATAL VITAMINS W/ FOLIC ACID TABLET (FP) PO SCH (10:15)
[2019-03-24] MEDS: BUDESONIDE/FORMETEROL FUMARATE 160/4.5 mcg INHALER IH SCH ×2 (10:15→21:00)
[2019-03-24] MEDS: LORATADINE 10 MG TABLET PO SCH (10:15)
[2019-03-24] MEDS: NICOTINE 7 MG/24 HOURS TOPICAL PATCH TD SCH (10:15)
[2019-03-24] MEDS ORDERED: PT OWN MED DRAWER 7, Y5N ONE ×2 (19:21→21:02)
[2019-03-24] MEDS: THIAMINE HCL 100 MG TABLET (FP) PO SCH (21:00)
[2019-03-24] MEDS: MINERAL OIL/PETROLAT/WATER TOPICAL CREAM 113 GM JAR TP PRN (21:02)
[2019-03-25] MEDS: BUDESONIDE/FORMETEROL FUMARATE 160/4.5 mcg INHALER IH SCH ×2 (09:44→21:26)
[2019-03-25] MEDS: MINERAL OIL/PETROLAT/WATER TOPICAL CREAM 113 GM JAR TP PRN ×2 (09:44→21:26)
[2019-03-25] MEDS: NICOTINE 7 MG/24 HOURS TOPICAL PATCH TD SCH (09:45)
[2019-03-25] MEDS: PRENATAL VITAMINS W/ FOLIC ACID TABLET (FP) PO SCH (09:45)
[2019-03-25] MEDS: LORATADINE 10 MG TABLET PO SCH (09:45)
[2019-03-25] MEDS: FAMOTIDINE 20 MG TABLET PO SCH (09:45)
[2019-03-25] MEDS: MAG HYDROX/AL HYDROX/SIMETH 30 ML UNIT-DOSE CUP PO PRN (10:00)
[2019-03-25] MEDS: MELATONIN 5 MG TABLETS PO PRN (21:26)
[2019-03-25] MEDS: THIAMINE HCL 100 MG TABLET (FP) PO SCH (21:26)
[2019-03-26] MEDS: MAG HYDROX/AL HYDROX/SIMETH 30 ML UNIT-DOSE CUP PO PRN ×2 (02:54→19:40)
[2019-03-26] MEDS: BUDESONIDE/FORMETEROL FUMARATE 160/4.5 mcg INHALER IH SCH ×2 (09:50→21:01)
[2019-03-26] MEDS: MINERAL OIL/PETROLAT/WATER TOPICAL CREAM 113 GM JAR TP PRN (09:50)
[2019-03-26] MEDS: PANTOPRAZOLE 40 MG TABLET (FP) PO SCH (09:50)
[2019-03-26] MEDS: LORATADINE 10 MG TABLET PO SCH (09:50)
[2019-03-26] MEDS: PRENATAL VITAMINS W/ FOLIC ACID TABLET (FP) PO SCH (09:51)
[2019-03-26] MEDS: NICOTINE 7 MG/24 HOURS TOPICAL PATCH TD SCH (09:51)
[2019-03-26] MEDS ORDERED: PT OWN MED DRAWER 7, Y5N ONE (19:31)
[2019-03-26] MEDS: MELATONIN 5 MG TABLETS PO PRN (21:01)
[2019-03-26] MEDS: THIAMINE HCL 100 MG TABLET (FP) PO SCH (21:01)
[2019-03-27] MEDS: MAG HYDROX/AL HYDROX/SIMETH 30 ML UNIT-DOSE CUP PO PRN ×2 (01:41→11:08)
[2019-03-27] MEDS: FAMOTIDINE 20 MG TABLET PO SCH (02:18)
[2019-03-27] MEDS: LORATADINE 10 MG TABLET PO SCH (09:33)
[2019-03-27] MEDS: PANTOPRAZOLE 40 MG TABLET (FP) PO SCH (09:33)
[2019-03-27] MEDS: PRENATAL VITAMINS W/ FOLIC ACID TABLET (FP) PO SCH (09:33)
[2019-03-27] MEDS: BUDESONIDE/FORMETEROL FUMARATE 160/4.5 mcg INHALER IH SCH ×2 (09:34→20:59)
[2019-03-27] MEDS: NICOTINE 7 MG/24 HOURS TOPICAL PATCH TD SCH (09:55)
--- NOTE | 2019-03-27 11:21 | PN ---
[facility] Progress Note (SOAP) Subjective: Patient c/o indigestion unrelieved by pepcid or protonix. Patient takes Prilosec at home. Objective: Vital Signs (72 hours) 03/25/19 03/25/19 03/26/19 03:30 06:54 00:30 Temperature 97.8 F Pulse Rate 88 Respiratory 18 18 18 Rate Blood Pressure 103/74 03/26/19 03/26/19 03/27/19 03:30 07:08 05:55 Temperature 98.1 F 97.9 F Pulse Rate 84 85 Respiratory 18 18 18 Rate Blood Pressure 103/71 101/73 General: No apparent distress HEENTM: normocephalic, throat clear Neck: supple, trachea in good position ABD: +BS, non-tender, non-distended. 03/27/19 11:19 Assessment: GERD 03/27/19 11:20 Plan: Patient agreed to use Mylanta. Patient will have family bring in his Prilosec.
[2019-03-27] MEDS: OMEPRAZOLE 20 MG PO SCH (16:32)
[2019-03-27] MEDS: THIAMINE HCL 100 MG TABLET (FP) PO SCH (20:59)
[2019-03-27] MEDS: MELATONIN 5 MG TABLETS PO PRN (20:59)
[2019-03-28] MEDS: LORATADINE 10 MG TABLET PO SCH (09:50)
[2019-03-28] MEDS: OMEPRAZOLE 20 MG PO SCH (09:50)
[2019-03-28] MEDS: PRENATAL VITAMINS W/ FOLIC ACID TABLET (FP) PO SCH (09:50)
[2019-03-28] MEDS: BUDESONIDE/FORMETEROL FUMARATE 160/4.5 mcg INHALER IH SCH ×2 (09:51→21:30)
[2019-03-28] MEDS: NICOTINE 7 MG/24 HOURS TOPICAL PATCH TD SCH (09:51)
[2019-03-28] MEDS ORDERED: MELATONIN 5 MG TABLETS PO PRN (13:25)
[2019-03-28] MEDS: THIAMINE HCL 100 MG TABLET (FP) PO SCH (21:30)
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
[2019-03-29] MEDS: LORATADINE 10 MG TABLET PO SCH (09:58)
[2019-03-29] MEDS: OMEPRAZOLE 20 MG PO SCH (09:59)
[2019-03-29] MEDS: PRENATAL VITAMINS W/ FOLIC ACID TABLET (FP) PO SCH (09:59)
[2019-03-29] MEDS: BUDESONIDE/FORMETEROL FUMARATE 160/4.5 mcg INHALER IH SCH ×2 (09:59→21:00)
[2019-03-29] MEDS: NICOTINE 7 MG/24 HOURS TOPICAL PATCH TD SCH (09:59)
[2019-03-29] MEDS: THIAMINE HCL 100 MG TABLET (FP) PO SCH (21:00)
[2019-03-29] MEDS ORDERED: SUVOREXANT 10 MG TABLET PO PRN (22:00)
[2019-03-30] MEDS: PRENATAL VITAMINS W/ FOLIC ACID TABLET (FP) PO SCH (09:49)
[2019-03-30] MEDS: OMEPRAZOLE 20 MG PO SCH (09:49)
[2019-03-30] MEDS: LORATADINE 10 MG TABLET PO SCH (09:49)
[2019-03-30] MEDS: NICOTINE 7 MG/24 HOURS TOPICAL PATCH TD SCH (09:50)
[2019-03-30] MEDS: BUDESONIDE/FORMETEROL FUMARATE 160/4.5 mcg INHALER IH SCH ×2 (09:50→21:00)
--- NOTE | 2019-03-30 12:12 | PN ---
[facility] Progress Note Note: Patient reports sleeping poorly despite taking Belsomra 10 mg/hs. Will increase medication dosage to 20 mg/hs prn for insomnia
[2019-03-30] MEDS: SUVOREXANT 20 MG TABLET PO PRN (21:00)
[2019-03-30] MEDS: THIAMINE HCL 100 MG TABLET (FP) PO SCH (21:00)
[2019-03-31] MEDS: BUDESONIDE/FORMETEROL FUMARATE 160/4.5 mcg INHALER IH SCH ×2 (09:42→21:02)
[2019-03-31] MEDS: NICOTINE 7 MG/24 HOURS TOPICAL PATCH TD SCH (09:42)
[2019-03-31] MEDS: LORATADINE 10 MG TABLET PO SCH (09:42)
[2019-03-31] MEDS: PRENATAL VITAMINS W/ FOLIC ACID TABLET (FP) PO SCH (09:42)
[2019-03-31] MEDS: OMEPRAZOLE 20 MG PO SCH (09:43)
[2019-03-31] MEDS: THIAMINE HCL 100 MG TABLET (FP) PO SCH (21:00)
[2019-03-31] MEDS: SUVOREXANT 20 MG TABLET PO PRN (21:01)
[2019-04-01] MEDS: NICOTINE 7 MG/24 HOURS TOPICAL PATCH TD SCH (09:24)
[2019-04-01] MEDS: OMEPRAZOLE 20 MG PO SCH (09:24)
[2019-04-01] MEDS: PRENATAL VITAMINS W/ FOLIC ACID TABLET (FP) PO SCH (09:24)
[2019-04-01] MEDS: BUDESONIDE/FORMETEROL FUMARATE 160/4.5 mcg INHALER IH SCH ×2 (09:24→21:02)
[2019-04-01] MEDS: LORATADINE 10 MG TABLET PO SCH (09:24)
[2019-04-01] MEDS: THIAMINE HCL 100 MG TABLET (FP) PO SCH (21:02)
[2019-04-02 07:18] VITALS: BP 110/72; PULSE 84; TEMP 98.2
[2019-04-02] MEDS: OMEPRAZOLE 20 MG PO SCH (09:35)
[2019-04-02] MEDS: PRENATAL VITAMINS W/ FOLIC ACID TABLET (FP) PO SCH (09:35)
[2019-04-02] MEDS: LORATADINE 10 MG TABLET PO SCH (09:35)
[2019-04-02] MEDS: BUDESONIDE/FORMETEROL FUMARATE 160/4.5 mcg INHALER IH SCH ×2 (09:36→21:02)
[2019-04-02] MEDS: NICOTINE 7 MG/24 HOURS TOPICAL PATCH TD SCH (09:36)
--- NOTE | 2019-04-02 15:25 | DS ---
[facility] Rehab Discharge Summary - [facility] Rehab Discharge Summary Admission Date: 03/21/19 Discharge Date: 04/02/19 - History Present History: Alcohol dependence, Cannabis dependence, Cocaine dependence Pertinent Past History: 58 year old black male with history of alcohol use disorder. He was here in 2018 for rehab and completed and then went to shelter rehab at [facility]. However, upon discharge 3 months later he immediately relapsed. He states it's because of his interaction with his ex-girlfriend. He has poor support and no structure in his life. He wants to this time enter detox and then [place] close to his sister who lives in [place]. He smokes ciggarettes per day, has cut down a lot. He was drinking alcohol, using cocaine and marijuana. He was drinking daily up to 2 6 packs daily, last drink was last night. PMH: Asthma, GERD, Seasonal and Perennial Allergies. All: PCN+ Psur lung surgery misdiagnosed, left elbow fracture, left trauma to head. - Discharge Physical Exam Vital Signs: Vital Signs Temperature 98.2 F 04/02/19 07:17 Pulse Rate 84 04/02/19 07:17 Respiratory Rate 20 04/02/19 07:17 Blood Pressure 110/72 04/02/19 07:17 O2 Sat by Pulse Oximetry (%) Pertinent Admission Physical Exam Findings: General Appearance: No apparent distress HEENTM: Normocephalic, Respiratory: Lungs Clear, Neck: Supple, Trachea in good position Cardiology: S1, S2 Abdominal: +Bowel Sounds, Non Tender, Flat, Soft Musculoskeletal: full range of Motion, Gait Steady, Neurological: security systems specialist II-XII NML intact, - Treatment Discharge Condition: Outpatient referral accepted (Will go to the [facility] at [place]. Medically stable for discharge.) Hospital Course: patient attended groups, had 1:1 with counselor, was seen by psychiatric service. He had no acute or urgent medical problems while in rehab. He was adherent to his medicine regimen and treatment plan. - Medication Discharge Medications: Ambulatory Orders Albuterol So4/Ipratropium [Combivent Inhaler -] 1 inh PO BID #1 aer.w.adap 05/03 Albuterol Sulfate Inhaler - [Ventolin HFA Inhaler -] 2 inh PO Q4H PRN #1 inhaler 10/03/18 Budesonide/Formeterol Fumarate [SYMBICORT 160/4.5mcg -] 1 inh PO BID #1 inhaler 10/03/18 Loratadine [Claritin -] 10 mg PO DAILY #14 tablet 10/03/18 Omeprazole 20 mg PO DAILY #30 capsule. 03/27/19 - Medication-Assisted Treatment (MAT) Medication-Assisted Treatment (MAT): No - Discharge Instructions Diet, activity, other medical instructions: Diet: as tolerated Activity: as tolerated Other medical instructions: please follow up with aftercare referral. - Diagnosis (1) Alcohol dependence Current Visit: Yes Status: Chronic (2) Cannabis abuse Current Visit: Yes Status: Chronic (3) Cocaine dependence Current Visit: Yes Status: Chronic - Follow-up Referral Minutes to complete discharge: 20 - AMA Did Patient Leave Against Medical Advice: No Additional Comments: patient reported that he did not need any medications transmitted to his pharmacy, he had enough at home.
[2019-04-02] MEDS: THIAMINE HCL 100 MG TABLET (FP) PO SCH (21:02)
[2019-04-02] MEDS ORDERED: SUVOREXANT 20 MG TABLET PO PRN (22:00)
== END 2019-04-03 00:10 | disposition home or self-care (01) | DRG 772 ==
LOC: YASAS 08:30 → Y3W 10:37
PROVIDERS: ADMIT Neuromusculoskeletal Medicine & OMM; ATTEND Neuromusculoskeletal Medicine & OMM
PROC: HZ42ZZZ Group Counseling for Substance Abuse Treatment, Cognitive-Behavioral (ICD-10-PCS; principal; 2019-03-21)
DX: F10.20 Alcohol dependence, uncomplicated (principal); F14.20 Cocaine dependence, uncomplicated; F12.20 Cannabis dependence, uncomplicated; F17.210 Nicotine dependence, cigarettes, uncomplicated; F43.10 Post-traumatic stress disorder, unspecified; F19.280 Other psychoactive substance dependence with psychoactive substance-induced anxiety disorder; F19.282 Other psychoactive substance dependence with psychoactive substance-induced sleep disorder; J45.909 Unspecified asthma, uncomplicated; K21.9 Gastro-esophageal reflux disease without esophagitis; E78.5 Hyperlipidemia, unspecified; G40.909 Epilepsy, unspecified, not intractable, without status epilepticus; G89.4 Chronic pain syndrome; J30.2 Other seasonal allergic rhinitis; M19.90 Unspecified osteoarthritis, unspecified site; Z91.410 Personal history of adult physical and sexual abuse; Z88.0 Allergy status to penicillin
CPT/HCPCS: 36415; 80053; 81003; 85027; 86593